=== PATIENT | female | born 1985 | race Caucasian/White ===

== ENCOUNTER 2024-01-22 13:53 | Inpatient (IN) | payer OTHER ==
[2024-01-22 15:53] VITALS: BMI 20.5
[2024-01-22] MEDS ORDERED: guaiFENesin 600 MG TABLET.ER (FP) PO PRN (17:31)
[2024-01-22] MEDS ORDERED: ACETAMINOPHEN 325 MG TABLET (FP) PO PRN (17:31)
[2024-01-22] MEDS ORDERED: MAG HYDROX/AL HYDROX/SIMETH 30 ML UNIT-DOSE CUP PO PRN (17:31)
[2024-01-22] MEDS ORDERED: LOPERAMIDE HCL 2 MG CAPSULE PO PRN (17:31)
[2024-01-22] MEDS ORDERED: MAGNESIUM HYDROX 2400MG/30ML ORAL SUSPENSION 30 ML CUP PO PRN (17:31)
[2024-01-22] MEDS ORDERED: BENZOCAINE/MENTHOL (CHLORASEPTIC ) LOZENGE MM PRN (17:31)
[2024-01-22] MEDS ORDERED: BENZONATATE 200 MG CAPSULE PO PRN (17:31)
[2024-01-22] MEDS ORDERED: IBUPROFEN 400 MG TABLET (FP) PO PRN (17:31)
[2024-01-22] MEDS ORDERED: NICOTINE POLACRILEX 2 MG GUM BUC PRN (17:31)
[2024-01-22] MEDS ORDERED: NALOXONE HCL 0.4 MG/ML VIAL IM PRN (17:31)
[2024-01-22] MEDS ORDERED: NALOXONE (NARCAN) HCL 4 MG/0.1 ML SPRAY NS PRN (17:31)
[2024-01-22] MEDS ORDERED: POLYETHYLENE GLYCOL (HEALTHYLAX) 3350 17 GM PACKET PO PRN (17:31)
[2024-01-22] MEDS ORDERED: TUBERCULIN PPD 5 TU/0.1ML VIAL ID ONE (22:12)
[2024-01-22] MEDS: MELATONIN 5 MG TABLETS PO SCH (22:14)
[2024-01-22] MEDS: THIAMINE 100 MG TABLET PO SCH (22:14)
[2024-01-22] MEDS: hydrOXYzine PAMOATE 25 MG CAPSULE (FP) PO PRN (22:14)
[2024-01-22] MEDS: TUBERCULIN PPD 5 TU/0.1ML SYRINGE (IN PATIENT USE ONLY) ID ONE (22:16)
[2024-01-23] MEDS: NICOTINE 21 MG/24 HOURS TOPICAL PATCH TD SCH (10:05)
[2024-01-23] MEDS: PRENATAL VITAMINS W/ FOLIC ACID TABLET (FP) PO SCH (10:05)
[2024-01-23 11:32] LABS: HEMATOCRIT 35.7 % (32.4-45.2); HEMOGLOBIN 12.3 GM/dL (10.7-15.3); MCH 31.7 pg (25.7-33.7); MCHC 34.4 g/dl (32.0-36.0); MEAN PLT VOLUME 7.5 fl (7.5-11.1); PLATELET COUNT 310 10^3/uL (134-434); RBC 3.88 M/mm3 (3.60-5.2); RDW 12.9 % (11.6-15.6); WHITE BLOOD COUNT 5.7 K/mm3 (4.0-10.0)
[2024-01-23 13:11] LABS: CHLORIDE 106 mmol/L (98-107); POTASSIUM 3.7 mmol/L (3.5-5.1); SODIUM 140 mmol/L (136-145)
[2024-01-23 13:18] LABS: ALBUMIN 3.2 g/dl (3.4-5.0); ANION GAP 4 mmol/L (4-13); BLOOD UREA NITROGEN 14.9 mg/dL (7-18); CALCIUM 8.8 mg/dL (8.5-10.1); CO2 30 mmol/L (21-32); GLUCOSE,RANDOM 72 mg/dL (74-106)
[2024-01-23 13:19] LABS: SGPT/ALT 14 U/L (13-61)
[2024-01-23 13:20] LABS: BILIRUBIN,TOTAL 0.2 mg/dL (0.2-1); CREATININE 0.7 mg/dL (0.55-1.3)
[2024-01-23 13:21] LABS: SGOT/AST 11 U/L (15-37)
[2024-01-23 13:22] LABS: ALK PHOS 52 U/L (45-117); TOT PROT 6.2 g/dl (6.4-8.2)
[2024-01-23 16:25] LABS: EPI CELLS >36 /uL (0-25.1); HYALINE CASTS 3 /uL (0-3.1); URINE APPEARANCE CLOUDY; URINE BACTERIA 8382 /uL (0-1359); URINE BILIRUBIN NEGATIVE (NEGATIVE); URINE COLOR YELLOW; URINE GLUCOSE (UA) NEGATIVE (NEGATIVE); URINE KETONE NEGATIVE (NEGATIVE); URINE LEUK ESTERASE 1+ (NEGATIVE); URINE NITRITE NEGATIVE (NEGATIVE); URINE PROTEIN NEGATIVE (NEGATIVE); URINE WBC 128 /uL (0-25.8)
[2024-01-23 17:57] LABS: URINE CRYSTALS NONE SEEN /hpf; URINE RBC 93.2 /uL (0-23.9)
[2024-01-23] MEDS: GABAPENTIN 300 MG CAPSULE PO SCH (21:49)
[2024-01-23] MEDS: chlorproMAZINE HCL 100 MG TABLET PO SCH (22:43)
[2024-01-24] MEDS ORDERED: methaDONE HCL 10 MG TABLET PO SCH (06:00)
[2024-01-24 06:38] VITALS: RESP 18
[2024-01-24] MEDS: VENLAFAXINE HCL 75 MG E.R. CAPSULES PO SCH (09:00)
[2024-01-24] MEDS: DEXTROAMPHETAMINE/AMPHETAMINE 20 MG CAP.ER.24H PO SCH (10:53)
[2024-01-24] MEDS: OXYMETAZOLINE 0.05% NASAL SOLUTION 15 ML BOTTLE NS ONE (15:04)
[2024-01-24 19:00] LABS: EPI CELLS >36 /uL (0-25.1); HYALINE CASTS 2 /uL (0-3.1); URINE APPEARANCE CLOUDY; URINE BACTERIA 833 /uL (0-1359); URINE BILIRUBIN NEGATIVE (NEGATIVE); URINE COLOR DK YELLOW; URINE GLUCOSE (UA) NEGATIVE (NEGATIVE); URINE KETONE TRACE (NEGATIVE); URINE LEUK ESTERASE TRACE (NEGATIVE); URINE NITRITE NEGATIVE (NEGATIVE); URINE PROTEIN NEGATIVE (NEGATIVE); URINE WBC 44 /uL (0-25.8)
[2024-01-24] MEDS: SULFAMETHOXAZOLE/TRIMETHOPRIM 800MG/160MG D.S. TABLET PO SCH (21:44)
[2024-01-25] MEDS: methaDONE HCL 40 MG DISPERSABLE TABLET PO SCH (06:21)
[2024-01-25 06:49] VITALS: TEMP 97.4
[2024-01-25] MEDS: IBUPROFEN 600 MG TABLET (FP) PO PRN (07:53)
[2024-01-25 09:05] VITALS: BP 125/78; PULSE 81
== END 2024-01-25 10:45 | disposition left against medical advice (07) | DRG 770 ==
LOC: YASAS 13:53 → Y5N 19:53
PROVIDERS: ADMIT Psychiatry & Neurology Pain Medicine; ATTEND Psychiatry & Neurology Pain Medicine
PROC: HZ42ZZZ Group Counseling for Substance Abuse Treatment, Cognitive-Behavioral (ICD-10-PCS; principal; 2024-01-22)
DX: F11.20 Opioid dependence, uncomplicated (principal); F14.20 Cocaine dependence, uncomplicated; F13.20 Sedative, hypnotic or anxiolytic dependence, uncomplicated; F17.210 Nicotine dependence, cigarettes, uncomplicated; F31.9 Bipolar disorder, unspecified; F41.9 Anxiety disorder, unspecified; F43.10 Post-traumatic stress disorder, unspecified; G47.00 Insomnia, unspecified; J45.909 Unspecified asthma, uncomplicated; N39.0 Urinary tract infection, site not specified; R09.81 Nasal congestion; Z62.810 Personal history of physical and sexual abuse in childhood; Z91.410 Personal history of adult physical and sexual abuse; Z59.00 Homelessness unspecified; Z63.8 Other specified problems related to primary support group; Z63.0 Problems in relationship with spouse or partner
CPT/HCPCS: 36415; 80053; 80305; 80307; 81003; 81025; 85027; 86780; 93005; 93010